=== PATIENT | female | born 1940 | race Caucasian/White ===

== ENCOUNTER 2021-12-23 13:06 | Outpatient (CLI) | payer MEDICARE, BC, SELFPAY ==
--- NOTE | 2021-12-23 13:37 | CRLHL7_ITS ---
For Patients: As a result of the Century Cures Act, medical imaging exams and procedure reports are released immediately into your electronic medical record. You may view this report before your referring provider. If you have questions, please contact your health care provider. DXA BONE MINERAL DENSITY STUDY Current height (in): 64.0. Weight (lb): 160.0. Menopause age: 50. Ethnicity: White. Reason for exam: Menopausal, cancer. 1. Have you had a previous hip or vertebral fracture? No. 2. Have you had any fractures during your adult life which did not result from significant trauma (e.g., auto accident)? No. 3. Did either of your parents have a hip fracture? Yes. 4. Do you smoke? No. 5. Have you ever taken Glucocorticoids? No. 6. Do you have rheumatoid arthritis? No. 7. Do you have secondary osteoporosis? Yes. 8. Do you drink 3 or more alcoholic drinks per day? No. 9. Are you being treated for osteoporosis? No. 10. Have you ever taken any of the following medications: Actonel, Evista, Fosamax, Miacalcin, Reclast, Boniva, Forteo, HRT (i.e. estrogen/hormone therapy), Protelos, Prolia, Vitamin D, Calcium, other ??? please specify. ANSWER: Yes, vitamin D, HRT, calcium. 11. Do you have any of the following medical conditions: Anorexia or bulimia, asthma or emphysema, end stage renal disease, hyperparathyroidism, any seizure disorders, cancer, inflammatory bowel diseases, hysterectomy, other ??? please specify. ANSWER: No. 12. What was your maximum height (inches)? 64. 13. Do you perform weight bearing exercise regularly? No. 14. Do you regularly consume dairy products? Yes. 15. Do you drink caffeinated beverages? Yes. If female: 16. At what age did your period start? 15. 17. Are you premenopausal? No. 18. How many full term pregnancies have you had? 1. 19. Have you ever missed your period for more than 6 months in a row (not including or menopause)? No. TECHNIQUE: Bone mineral density study was performed using the [facility]. FINDINGS: The results of the study expressed as bone mineral density (BMD) are as follows: Lumbar spine L1 to L4: BMD: 0.808 g/cm2. T-score: -1.9. Z-score: 0.8. Neck Left: BMD: 0.653 g/cm2. T-score: -1.8. Z-score: 0.6. Right: BMD: 0.660 g/cm2. T-score: -1.7. Z-score: 0.7. Total Left: BMD: 0.721 g/cm2. T-score: -1.8. Z-score: 0.3. Right: BMD: 0.820 g/cm2. T-score: -1.0. Z-score: 1.1. Radius Left 33%: BMD: 0.519 g/cm2. T-score: -2.7. Z-score: 0.4. IMPRESSION: Osteoporosis. *Comparison exams done prior to 08/2019 were performed on different unit, [facility]. COMPARISON: Compared with scan of 12/13/2019, the bone mineral density has increased by 1.5 percent at the spine and decreased by 2.6 percent at the hip. FRAX 10-year Fracture Risk Major Osteoporotic Fracture: 26 percent Hip Fracture: 16 percent Reported Risk Factors: [place] () Neck BMD = 0.653, BMI = 27.5 Rishi Nicholas M.D. Diagnostic Radiologist [email or web address] Transcribed: 4:53 pm DW/Dictated by: Rishi Nicholas MD @ 12/23/2021 4:00:00 PM (Electronically Signed)
--- NOTE | 2021-12-23 13:54 | ONC.NURNOTE ---
Patient with creatinine of 1.6 which is slightly up from parameters so discussed with CORBY Pastrana and decision to give Darzalex. Patient told to drink lots of fluids before coming in so when patient in she states she has drank alot like 8 pints. Orthostatic Blood pressures done and was almost identical. Patient has had fluctuating creatinines since admission to oncology and feels hydrated and needs to get back to care for sick dog she dropped at vet.
== END 2021-12-23 13:07 | disposition home or self-care (01) ==
PROVIDERS: PCP Family Medicine; Visit Provider Internal Medicine Hematology & Oncology
DX: M81.0 Age-related osteoporosis without current pathological fracture (principal); M85.89 Other specified disorders of bone density and structure, multiple sites
CPT/HCPCS: 77080

== ENCOUNTER 2022-01-19 11:03 | Outpatient (CLI) | payer MEDICARE, BC, SELFPAY ==
--- NOTE | 2022-01-19 11:30 | CRLHL7_ITS ---
For Patients: As a result of the Century Cures Act, medical imaging exams and procedure reports are released immediately into your electronic medical record. You may view this report before your referring provider. If you have questions, please contact your health care provider. BILATERAL SCREENING MAMMOGRAM WITH COMPUTER-AIDED DETECTION AND TOMOSYNTHESIS TECHNIQUE: CC, MLO and Implant displaced views were obtained. These mammographic images have been obtained using full-field digital technique. These mammographic images were interpreted with the benefit of computer-aided detection. Breast Tomosynthesis was used in this interpretation. COMPARISON FILM: 12/14/20, 12/13/19, 12/11/18. FINDINGS: The breasts are heterogeneously dense, which may obscure small masses IMPRESSION: There is no radiographic evidence for malignancy. ASSESSMENT: BI-RADS Category 1: Negative RECOMMENDATION: Routine screening mammogram in 1 year. A lay language report of this examination will be provided to the patient. Rishi Nicholas M.D. Diagnostic Radiologist [email or web address] JUANITA/shiva Transcribed: 7:31 p.m. FERNANDO/Dictated by: Rishi Nicholas MD @ 01/19/2022 12:12:00 PM (Electronically Signed)
== END 2022-01-19 11:04 | disposition home or self-care (01) ==
PROVIDERS: PCP Family Medicine; Visit Provider Internal Medicine Hematology & Oncology
DX: Z12.31 Encounter for screening mammogram for malignant neoplasm of breast (principal); R92.2 Inconclusive mammogram
CPT/HCPCS: 77063; 77067

== ENCOUNTER 2023-01-20 08:48 | Outpatient (CLI) | payer MEDICARE, BC, SELFPAY ==
--- NOTE | 2023-01-20 09:15 | CRLHL7_ITS ---
For Patients: As a result of the Century Cures Act, medical imaging exams and procedure reports are released immediately into your electronic medical record. You may view this report before your referring provider. If you have questions, please contact your health care provider. BILATERAL SCREENING MAMMOGRAM WITH COMPUTER-AIDED DETECTION AND TOMOSYNTHESIS TECHNIQUE: CC and MLO views were obtained. These mammographic images have been obtained using full-field digital technique. These mammographic images were interpreted with the benefit of computer-aided detection. Breast tomosynthesis was used in this interpretation. COMPARISON FILM: 01/19/22, 12/14/20, 12/13/19. FINDINGS: The breasts are heterogeneously dense, which may obscure small masses. IMPRESSION: There is no radiographic evidence for malignancy. ASSESSMENT: BI-RADS Category 1: Negative RECOMMENDATION: Routine screening mammogram in 1 year. A lay language report of this examination will be provided to the patient. RISHI BARBER M.D. Diagnostic Radiologist [email or web address] JUANITA/ayde Transcribed: 01/20/2023, 2:[address]/Dictated by: Rishi Barber MD @ 01/20/2023 10:26:00 AM (Electronically Signed)
== END 2023-01-20 08:49 | disposition home or self-care (01) ==
LOC: MAMMO 08:50
PROVIDERS: PCP Family Medicine; Visit Provider Family Medicine
DX: Z12.31 Encounter for screening mammogram for malignant neoplasm of breast (principal); R92.2 Inconclusive mammogram
CPT/HCPCS: 77063; 77067

== ENCOUNTER 2023-02-02 09:50 | Outpatient (RCR) | payer MEDICARE, BC, SELFPAY | END 2023-03-01 23:59 | disposition home or self-care (01) | LOC: CCIC 09:50 | PROVIDERS: PCP Family Medicine; Visit Provider Physician Assistant | DX: C50.912 Malignant neoplasm of unspecified site of left female breast (principal); Z17.0 Estrogen receptor positive status [ER+]; Z79.811 Long term (current) use of aromatase inhibitors; M81.0 Age-related osteoporosis without current pathological fracture; N63.0 Unspecified lump in unspecified breast; N63.11 Unspecified lump in the right breast, upper outer quadrant | CPT/HCPCS: 99212; 99214 ==

== ENCOUNTER 2023-02-10 07:25 | Outpatient (CLI) | payer MEDICARE, BC, SELFPAY ==
--- NOTE | 2023-02-10 07:41 | CRLHL7_ITS ---
For Patients: As a result of the Cures Act, medical imaging exams and procedure reports are released immediately into your electronic medical record. You may view this report before your referring provider. If you have questions, please contact your health care provider. DIGITAL DIAGNOSTIC RIGHT MAMMOGRAM USING TOMOSYNTHESIS AND COMPUTER-AIDED DETECTION RIGHT BREAST ULTRASOUND CLINICAL HISTORY: RIGHT breast lump. COMPARISON: 01/20/2023, 01/19/2022, 12/14/2020, 12/13/2019. TECHNIQUE: Digital RIGHT mammogram in two projections. Tomosynthesis and CAD utilized. Real-time ultrasound imaging of RIGHT breast with imaging documentation. Scanning was performed by both the technologist and the radiologist. BREAST COMPOSITION: The breast is heterogeneously dense, which may obscure small masses. FINDINGS: 3D CC/MLO RIGHT breast mammogram images submitted. No suspicious masses or architectural distortion. Benign calcifications. No adenopathy. Targeted RIGHT breast ultrasound performed upper outer quadrant 10 o`clock 6 cm from the nipple. Normal dense fibroglandular tissue. No suspicious findings. IMPRESSION: No evidence of malignancy. RECOMMENDATIONS: Routine screening mammography. Results and recommendations discussed with the patient. BI-RADS Category 2: Benign A lay language report of this examination will be provided to the patient. Dictated by Rishi Nicholas MD @ 02/10/2023 8:59:26 AM /Dictated by: Rishi Nicholas MD @ 02/10/2023 8:59:00 AM (Electronically Signed)
--- NOTE | 2023-02-10 07:41 | CRLHL7_ITS ---
For Patients: As a result of the Cures Act, medical imaging exams and procedure reports are released immediately into your electronic medical record. You may view this report before your referring provider. If you have questions, please contact your health care provider. PLEASE SEE DIGITAL DIAGNOSTIC RIGHT MAMMOGRAM PERFORMED SAME DAY CRL:mary beth clinton/Dictated by: Rishi Nicholas MD @ 02/10/2023 8:59:00 AM (Electronically Signed)
== END 2023-02-10 07:26 | disposition home or self-care (01) ==
LOC: MAMMO 07:26
PROVIDERS: PCP Family Medicine; Visit Provider Physician Assistant
DX: N63.11 Unspecified lump in the right breast, upper outer quadrant (principal); N64.59 Other signs and symptoms in breast
CPT/HCPCS: 76642; 77065; G0279

== ENCOUNTER 2023-08-22 09:45 | Outpatient (RCR) | payer MEDICARE, BC, SELFPAY ==
--- NOTE | 2023-07-03 16:24 | PT.OPEX ---
PT [place] Outpatient Eval PT [facility] Outpatient Eval Start: 07/03/23 09:54 Freq: Status: Active Protocol: Document 07/03/23 09:55 NESTOR (Rec: 07/03/23 16:24 NESTOR [id number]) E-signed By Mami Royal PT Physical Therapy Outpatient Evaluation Insurance Information Recert Due Date 09/30/23 Insurance Name Medicare B Medical Diagnosis CERVICAL STRAIN S16.1XXD CONCUSSION S06.0X0D SHOULDER STRAIN S46.911S CLOSED NON-DISPLACED FRACTURE OF HEAD OF RIGHT RADIUS S52.124D Treating Diagnosis NECK PAIN M54.2 HEADACHE R51.9 Referring MD WILEY GOLDEN DO Subjective Subjective PATIENT REPORTS 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 SHE DID HAVE A CT SCAN AND XRAYS IN [place] REVEALING A FRACTURE TO RADIAL HEAD AND A MENINGIOMA. IT RELATES TO HER CONCUSSION AND NECK STRAIN, SHE REPORTS INITIALLY HAVING SIGNIFICANT SENSITIVITY TO LIGHT, SOUNDS AND MODERATE TO SEVERE HEADACHE. THESE SYMPTOMS HAVE SUBSIDED GREATLY BUT HER HEADACHE AND CERVICAL TIGHTNESS LINGER. DR. GOLDEN IS SETTING UP A NEURO CONSULT TO ADDRESS THE MRI AND CT SCAN . IN REGARD TO HER RIGHT ARM PAIN AND PROXIMAL RADIAL FX, SHE REPORTS MIN ISSUES NOTING MIN TTP, FULL USE OF THE ARM, AND OCCASIONAL DISCOMFORT WHEN SHE BUMPS IT. HER GREATEST CHALLENGED IS HER HEADACHES AND CERVICAL DISCOMFORT/TIGHTNESS. Date of Last Physician Visit 06/13/23 Current Work Status Retired Preferred Name LISSA Precautions Treatment Precautions/Contraindications H/O BREAST CA (INVASIVE DUCTAL CARCINOMA 2019), HTN, HLD, OSTEOPENIA Objective Other/Pertinent Objective SPINAL ALIGNMENT/POSTURE CERVICAL ROM Flexion: 40 Extension: 35 Right Rotation: 32 Left Rotation: 20 Right side bend: 18 Left Side bend: 10 SHOULDER AROM: WFL NECK/SHOULDER MMT: Deep neck flexor endurance test: Shoulder shrug: R 5/5 L 5/5 Shoulder flexion: R 4/5 L 5/5 Shoulder abduction: R 4/5 L 5/ 5 Shoulder External Rotation: R 4/5 L 5/5 Shoulder Internal Rotation: R 4+/5 L 5/5 Elbow Flexion: R 4/5 L5 /5 Elbow Ext: R 4/5 L 5/5 SPECIAL TEST Spurlings Test: (+) Cervical distraction test: (-) Vertebral Artery Test: (-) SharpPursher Test (transverse ligament): (-) Alar Lig Test: (-) Shoulder impingement HawkinsKennedy Test: (-) Neer Test: (-) JOINT MOBILITY/PALPATION: NEGLIGIBLE SEGMENTAL MVMT THROUGHOUT THE CERVICAL SPIN WITH TTP RIGHT SPLENIUS CAPITUS, UPPER TRAP AND LEVATOR SCAPULAE TX: SHOULDER SHRUG WITH BKWD ROTATION X 15 CERVICAL ROTATION R/L 3 X 15 SEC CERVICAL FLEX 3 X 15 SEC CERVICAL EXT 3 X 15 SEC CHIN TUCK 10 X 5 SEC Functional Test Performed & Score 30 SEC STS:13 TUSEC KLEIN 48/56 Assessment Assessment/Impression PATIENT IS AN [address] GOLDEN TO EVAL AND TX NECK STRAIN, SHOULDER STRAIN, CONCUSSION, RADIAL HEAD FX; PATIENT DEMONSTRATES POOR CERVICAL ROM (SEE ABOVE) THAT IS LIKELY PRE-EXISTING AND MM SPASM/TAUTNESS AT LEVATOR SCAP INSERTION, SPLENIUS CAPITIS RIGHT, AND UPPER TRAP. PATIENT REPORTS MILD HEADACHE DAILY THAT INCREASES WITH EXTENDED EXPOSURE TO BRIGHT LIGHTS, NOISE, AND READING. SHE DOES NOT DEMONSTRATE GROSS UNSTEADINESS NOR LE WEAKNESS WITH TESTING REVEALING AGE APPROPRIATE NORMS OR BETTER. SHE WOULD BENEFIT FROM SKILLED PHYSICAL THERAPY TO ADDRESS HER SYMPTOM MGMT, INSTRUCTION AND EDUCATION REGARDING CONCUSSION AND CERVICOGENIC HEADACHES ALONG WITH BODY MECHANICS AND LIFTING. LASTLY, SHE WOULD BENEFIT FROM UPPER QUARTER STRENGTHENING AND CORE STABILIZATION. PATIENT VERBALIZED UNDERSTANDING TO ALL SKILLED INSTRUCTIONS. SHE IS AGREEABLE TO POC AND FREQ. Primary Functional Limitations REACHING, LIFTING, HEAD MVMTS, CONCENTRATION Plan of Care Rehabilitation Potential Good Physical Therapy Goals 1. PATIENT WILL BE EDUCATED ON POSTURE, BODY MECHANICS AND THE IMPORTANCE OF EA IN THE NEXT 2-3 WEEKS IN ORDER TO DECREASE STRESS TO THE JOINT/ MM AND TO DECREASE THEIR SYMPTOMS. 2. PATIENT WILL DECREASE THEIR PAIN AT WORST FROM 5/10 TO >/ 4/10 IN THE NEXT 4-6 WEEKS WE PROGRESS HER PHYSICAL THERAPY WELL DURING DAILY ACTIVITIES. 3. 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 4. PATIENT WILL BE INDEPENDENT WITH THEIR HEP WITHIN 6-8 WEEKS FOR PROGRESSION OF THE ABOVE GOALS, ONGOING SELF MGMT OF PAIN/SX, ONGOING, SELF IMPROVEMENTS IN ROM, POSTURE, AND RETURN TO BASELINE WITH DAILY ACTIVITIES, PEER/FAMILY CENTERED ACTIVITIES WITHOUT FLARE UPS OF SYMPTOMS/PAIN. Coordination/Communication With Referral Source Treatment Plan/Direct Interventions Heat,Ice/Cold/Vasopneumatic, Joint Mobilization,Manual Therapy,Neuromuscular Re-ed, Self-Care/Home Management, Traction (Mechanical), Ultrasound Frequency/Duration 1W8-12 Patient Will Be Discharged From Therapy Completion of LTG(s), Independently Progressing Evaluation Billing Untimed Code Treatment Minutes 25 PT Eval No Charge No Complexity Moderate Certification Information Initial Certification Date 07/03/23 Ending Certification Date 09/30/23 Provider Signature Shows Agreement With POC & Medical Necessity Physician Signature & Date Requested Please Sign/Date Here Physician Comment/Change : Physician NPI Number #
== END 2023-09-22 15:02 | disposition home or self-care (01) ==
PROVIDERS: PCP Family Medicine; Visit Provider Family Medicine
DX: S52.124D Nondisplaced fracture of head of right radius, subsequent encounter for closed fracture with routine healing (principal); S16.1XXD Strain of muscle, fascia and tendon at neck level, subsequent encounter; Z51.89 Encounter for other specified aftercare; S06.0X0D Concussion without loss of consciousness, subsequent encounter
CPT/HCPCS: 97110; 97140; 97162

== ENCOUNTER 2023-12-07 10:15 | Outpatient (RCR) | payer MEDICARE, BC, SELFPAY ==
--- NOTE | 2023-10-06 08:53 | PT.OPEX ---
PT [place] Outpatient Eval PT [facility] Outpatient Eval Start: 10/05/23 09:58 Freq: Status: Active Protocol: Document 10/05/23 09:58 NESTOR (Rec: 10/05/23 16:16 NESTOR [id number]) E-signed By Mami Royal PT Physical Therapy Outpatient Evaluation Insurance Information Recert Due Date 01/02/24 Medical Diagnosis CHRONIC POST CONCUSSION HEADACHE CERVICAL STRAIN Treating Diagnosis CERVICAL PAIN Referring MD WILEY GOLDEN DO Subjective Preferred Name LISSA Subjective LISSA RETURNS TO THE CLINIC WITH CONTINUED C/O HEADACHE, CERVICAL STIFFNESS, AND PAIN TO THE BASE OF HER SKULL. SHE STATES, I FEEL IT WHEN I WAKE IN THE MORNING AND THROUGHOUT THE DAY. I USE MY HEATING PAD AND HOT SHOWERS ALONG WITH THE EXERCISES AND IT JUST DOESN'T SEEM TO GET BETTER. Pain Comments 07/13 Date of Last Physician Visit 10/02/23 Current Work Status Retired Precautions Treatment Precautions/Contraindications H/O BEAST CA (INVASIVE DUCTAL CARCINOMA 2018), HTN, HLD, OSTEOPENIA Therapy Limitations/Systems Review Not Limited Assessment Assessment/Impression PATIENT IS AN [address] GARCIA FOR POST TRAUMATIC HEADACHE WITH CERVICAL STRAIN. LISSA EXPERIENCED A TRAUMATIC FALL IN APR 2023 WHERE SHE STRUCK HER LEFT TEMPORAL REGION AND EXPERIENCING A CONCUSSION. SHE INITIALLY REPORTED SIGNIFICANT SENSITIVITY TO LIGHT, NOISE, AND A CONSTANT MODERATE TO SEVERE ROTHMAN. SHE PARTICIPATED IN A COMPREHENSIVE PROGRAM TO ADDRESS HER CERVICAL PAIN AND PARASPINAL MUSCULAR TIGHTNESS ALONG WITH POSTURAL TEACHING AND STRENGTHENING. SHE HAS BEEN PERFORMING HER HEP BUT FEELS THE LINGER ROTHMAN AND CERVICAL TIGHTNESS, STIFFNESS, AND PAIN HAVE NOT REACHED A POINT WHERE SHE FEELS SHE IS MANAGING THEM INDEPENDENTLY. SHE I SENT BACK TO THERAPY AFTER A [address] GOLDEN FOR CONTINUED STRENGTHENING, STRETCHING, AND OVERALL MUSCULOSKELETAL MOBILITY. SHE DEMONSTRATES LIMITED CERVICAL ROTATION R 34 L26, MINIMAL SIDE BEND R 20 L18, CERVICAL FLEX 40 DEGREES, EXT 38 DEGREES. SHE DOES NOT DEMONSTRATE ANY OBVIOUS UNSTEADINESS SCORING 50/56 ON THE KLEIN BALANCE EXAM AND 8 SEC FOR THE TUG BOTH INDICATING ABOVE AVERAGE COMPARED TO HER PEERS. SHE DENIES AN VISUAL DISTURBANCE AND TESTS REVEALED UNREMARKABLE RESULTS FOR TRACKING, GAZE STABILIZATION, AND CONVERGENCE/DIVERGENCE. SHE HAS MODERATE TENDERNESS AT THE LEFT SCM ORIGIN, ALONG THE MUSCLE BELLY TO INSERTION AND LATERAL PTERYGOID WITH LIGHT PALPATION. SHE HAS MARGINAL SEGMENTAL MOBILITY BOTH AP AND LATERAL WHICH IS LIKELY PRE-EXISTING IN LIGHT OF HER AGE. SHE REPORTS THAT HER TRIGGERS ARE LOOKING DOWN TO PICK HER PURSE UP AND PROLONGED UPRIGHT POSTURING. SHE WOULD BENEFIT FROM SKILLED PHYSICAL THERAPY TO ADDRESS HER ONGOING SYMPTOMS AND MGMT WELL INSTRUCTION AND EDUCATION REGARDING CONCUSSION AND CERVICOGENIC. SHE IS AGREEABLE TO THE POC AND FREQ. Primary Functional Limitations PROLONGED HEAD POSTURING HEAD TURNS FOR DRIVING AND PEER/FAMILY CENTERED ACTIVITIES CONCENTRATION READING SCREEN SAMM Plan of Care Rehabilitation Potential Good Physical Therapy Goals 1. PATIENT WILL BE EDUCATED ON POSTURE, BODY MECHANICS AND THE IMPORTANCE OF EA IN THE NEXT 2-3 WEEKS IN ORDER TO DECREASE STRESS TO THE JOINT/ MM AND TO DECREASE THEIR SYMPTOMS. 2. PATIENT WILL DECREASE THEIR PAIN AT WORST FROM 5/10 TO >/ 3/10 IN THE NEXT 4-6 WEEKS WE PROGRESS HER PHYSICAL THERAPY WELL DURING DAILY ACTIVITIES. 3. 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 4. PATIENT WILL BE INDEPENDENT WITH THEIR HEP WITHIN 6-8 WEEKS FOR PROGRESSION OF THE ABOVE GOALS, ONGOING SELF MGMT OF PAIN/SX, ONGOING, SELF IMPROVEMENTS IN ROM, POSTURE, AND RETURN TO BASELINE WITH DAILY ACTIVITIES, PEER/FAMILY CENTERED ACTIVITIES WITHOUT FLARE UPS OF SYMPTOMS/PAIN. Coordination/Communication With Referral Source Treatment Plan/Direct Interventions Dry Needling,Joint Mobilization,Manual Therapy, Neuromuscular Re-ed,Self-Care/ Home Management,Therapeutic Activities,Therapeutic Exercises Frequency/Duration 1X/WK Patient Will Be Discharged From Therapy Completion of LTG(s), Independent w/HEP Evaluation Billing Untimed Code Treatment Minutes 20 PT Eval No Charge No Complexity Moderate Certification Information Initial Certification Date 10/05/23 Ending Certification Date 01/02/24 Provider Signature Required Yes Provider Signature Shows Agreement With POC & Medical Necessity Physician NPI Number Write NPI# Here Physician Comment/Change : Physician Signature & Date Requested Please Sign/Date Here
== END 2024-01-15 13:25 | disposition home or self-care (01) ==
PROVIDERS: PCP Family Medicine; Visit Provider Family Medicine
DX: S16.1XXD Strain of muscle, fascia and tendon at neck level, subsequent encounter (principal); G44.329 Chronic post-traumatic headache, not intractable; Z51.89 Encounter for other specified aftercare
CPT/HCPCS: 97110; 97140; 97162

== ENCOUNTER 2024-11-07 14:06 | Outpatient (CLI) | payer MEDICARE, BC, SELFPAY ==
--- NOTE | 2024-11-07 14:30 | CRLHL7_ITS ---
For Patients: As a result of the Century Cures Act, medical imaging exams and procedure reports are released immediately into your electronic medical record. You may view this report before your referring provider. If you have questions, please contact your health care provider. DXA BONE MINERAL DENSITY STUDY Current height (in): 68. Weight (lb): 125. Menopause age: 50. Ethnicity: White. 1. Have you had a previous hip or vertebral fracture? No. 2. Have you had any fractures during your adult life which did not result from significant trauma (e.g., auto accident)? No. 3. Did either of your parents have a hip fracture? Yes. 4. Do you smoke? No. 5. Have you ever taken Glucocorticoids? No. 6. Do you have rheumatoid arthritis? No. 7. Do you have secondary osteoporosis? Yes. 8. Do you drink 3 or more alcoholic drinks per day? No. 9. Are you being treated for osteoporosis? No. 10. Have you ever taken any of the following medications: Actonel, Evista, Fosamax, Miacalcin, Reclast, Boniva, Forteo, HRT (i.e. estrogen/hormone therapy), Protelos, Prolia, Vitamin D, Calcium, other ??? please specify. ANSWER: Yes, Vitamin D, HRT, and Calcium. 11. Do you have any of the following medical conditions: Anorexia or bulimia, asthma or emphysema, end stage renal disease, hyperparathyroidism, any seizure disorders, cancer, inflammatory bowel diseases, hysterectomy, other ??? please specify. ANSWER: No. 12. What was your maximum height (inches)? 64. 13. Do you perform weight bearing exercise regularly? No. 14. Do you regularly consume dairy products? Yes. 15. Do you drink caffeinated beverages? Yes. 16. At what age did your period start? 15. 17. Are you premenopausal? No. 18. How many full term pregnancies have you had? 1 19. Have you ever missed your period for more than 6 months in a row (not including or menopause)? No. TECHNIQUE: Bone mineral density study was performed using the [facility]. FINDINGS: The results of the study expressed as bone mineral density (BMD) are as follows: Lumbar spine L1 to L3: BMD: 0.797 g/cm2. T-score: -2.0 Z-score: 0.8. Neck Left: BMD: 0.574 g/cm2. T-score: -2.5. Z-score: 0.0. Right: BMD:0.591 g/cm2. T-score: -2.3. Z-score: 0.2. Total Left: BMD: 0.676 g/cm2. T-score: -2.2. Z-score: 0.1. Right: BMD: 0.745 g/cm2. T-score: -1.6. Z-score: 0.7. Radius Left 33%: BMD: 0.496 g/cm2. T-score: -3.3. Z-score: 0.3. IMPRESSION: Osteoporosis. COMPARISON: Compared with scan of 12/23/2021, the bone mineral density has decreased by 4.4 percent at the spine and decreased by 7.7 percent at the hip. Compared with scan of 24/11/2019, the bone mineral density has increased by 0.4 percent at the spine and decreased by 2.6 percent at the hip. Rishi Nicholas M.D. Diagnostic Radiologist [email or web address] JUANITA/he DW/Dictated by: Rishi Nicholas MD @ 11/08/2024 3:52:00 PM (Electronically Signed)
== END 2024-11-07 14:07 | disposition home or self-care (01) ==
LOC: RAD 14:09
PROVIDERS: PCP Family Medicine; Visit Provider Family Medicine
DX: M81.0 Age-related osteoporosis without current pathological fracture (principal)
CPT/HCPCS: 77080

== ENCOUNTER 2024-12-03 16:26 | Outpatient (CLI) | payer MEDICARE, BC, SELFPAY ==
--- NOTE | 2024-12-03 16:40 | CRLHL7_ITS ---
For Patients: As a result of the Century Cures Act, medical imaging exams and procedure reports are released immediately into your electronic medical record. You may view this report before your referring provider. If you have questions, please contact your health care provider. INDICATION: BILATEAL SCREENING MAMMOGRAM, ASYMPTOMATIC 84 Y/O FEMALE COMPARISON: 01/20/2023, 01/19/2022, 12/14/2020 TECHNIQUE: Digital mammogram in CC and MLO projections including computer-aided detection (CAD) and tomosynthesis. BREAST COMPOSITION: The breasts are heterogeneously dense, which may obscure small masses. FINDINGS: No suspicious findings. ASSESSMENT: BI-RADS 2 Benign RECOMMENDATION: Annual screening mammogram. A lay language report of this examination will be provided to the patient. Dictated by: Rishi Nicholas MD @ 12/04/2024 10:10:53 (Electronically Signed)
== END 2024-12-03 16:27 | disposition home or self-care (01) ==
LOC: MAMMO 16:26
PROVIDERS: PCP Family Medicine; Visit Provider Family Medicine
DX: Z12.31 Encounter for screening mammogram for malignant neoplasm of breast (principal); R92.333 Mammographic heterogeneous density, bilateral breasts
CPT/HCPCS: 77063; 77067